=== PATIENT | female | born 1995 | race Caucasian/White ===

== ENCOUNTER 2017-11-25 06:35 | Emergency (ER) | payer BC ==
--- NOTE | 2017-11-25 07:58 | EDPHY ---
H & P Time Seen by Provider: 11/25/17 07:26 HPI/ROS: CHIEF COMPLAINT: Abdominal pain HISTORY OF PRESENT ILLNESS: The patient is a 22-year-old female who presents emergency department with right lower quadrant/right flank abdominal pain. Pain started 2-3 days ago. It was intermittent. She has had nausea but no vomiting. No dysuria, hematuria or frequency. Patient has had a slightly decreased appetite. She has not noticed any fevers or chills. The patient denies any vaginal discharge. Her last menstrual period was 2 weeks ago. She has not had sex within the last month. She came off the control pill 2 months ago. REVIEW OF SYSTEMS: My complete review of systems is negative except as mentioned in the HPI. Past Medical/Surgical History: Denies Past surgical history: Denies Social history: Patient does not smoke. She drinks alcohol. Smoking Status: Never smoked Physical Exam: Vitals noted GENERAL: Well-appearing, in no acute distress, alert. HEENT: Eyes normal to inspection, normal pharynx, no signs of dehydration. NECK: No thyromegaly,supple. RESPIRATORY: Clear to auscultation bilaterally, no rales, rhonchi or wheezing. CVS: Regular rate and rhythm, no rubs, murmurs, or gallops. ABDOMEN: Soft, mild right lower quadrant tenderness to palpation with no rebound or guarding, nondistended, no organomegaly. BACK: Normal to inspection, no CVA tenderness. SKIN: Normal color, no rash, warm, dry. No pallor. EXTREMITIES: No pedal edema, no calf tenderness, no Homans sign or cords, no joint swelling. NEURO/PSYCH: Alert and oriented, normal mood and affect, normal motor sensory exam. Constitutional: Initial Vital Signs Temperature (C) 36.5 C 11/25/17 06:45 Heart Rate 56 L 11/25/17 06:45 Respiratory Rate 18 11/25/17 06:45 Blood Pressure 124/89 H 11/25/17 06:45 O2 Sat (%) 99 11/25/17 06:45 O2 Delivery Mode Room Air Allergies/Adverse Reactions: No Known Allergies Allergy (Unverified 03/20/15 19:30) Home Medications: Medication Instructions Recorded NK [No Known Home Meds] 11/25/17 Medical Decision Making - Diagnostics Imaging Results: Imaging Impressions Abdomen Ultrasound 11/25/17 07:55 Impression: Tubular structure in the right lower quadrant may represent the appendix but visualized portions measure within normal limits. Small amount of free fluid. Recommend physical and laboratory correlation. Pelvic/Renal Ultrasound 11/25/17 07:55 Impression: Trace fluid in the pelvis, possibly related to menstruation. ED Course/Re-evaluation: In the emergency department I discussed possible etiologies with the patient. I answered all her questions. IV was placed. Laboratory studies were obtained. Patient does not want any pain medication at this time. An ultrasound of her right lower quadrant to evaluate for appendicitis as well as a pelvic ultrasound were ordered. Patient's CBC was normal. Chemistry panel is unremarkable. Urine negative. negative. Ultrasound: Please refer the dictated report. Normal appearing ovaries. The radiologist feels that he sees a tube like structure in the right lower quadrant could represent a normal appearing appendix. I discussed the results with the patient. I answered all her questions. On recheck she stated she was feeling slightly better. She had mild right lower quadrant tenderness palpation with no rebound or guarding. I offered her diagnostic options including CT imaging and observation. At this time she would prefer to be discharged. She was given warnings prior to leaving. She will return with worsening symptoms. She understands limitations of workup thus far. Differential Diagnosis: My differential includes but is not limited to appendicitis, ovarian cyst, ovarian abscess, , ectopic , PID, STD, urinary tract infection , pyelonephritis, small-bowel obstruction, perforation, volvulus - Data Points Laboratory Results: Laboratory Results 11/25/17 08:00 11/25/17 08:00 11/25/17 11/25/17 11/25/17 08:00 08:00 08:00 WBC RBC Hgb Hct MCV MCH MCHC RDW Plt Count MPV Neut % (Auto) Lymph % (Auto) [place] % (Auto) Eos % (Auto) Baso % (Auto) Nucleat RBC Rel Count Absolute Neuts (auto) Absolute Lymphs (auto) Absolute Monos (auto) Absolute Eos (auto) Absolute Basos (auto) Absolute Nucleated RBC Immature Gran % Immature Gran # Sodium 141 mEq/L mEq/L (135-145) Potassium 3.8 mEq/L mEq/L (3.3-5.0) Chloride 106 mEq/L mEq/L (97-110) Carbon Dioxide 25 mEq/l mEq/l (22-31) Anion Gap 10 mEq/L mEq/L (8-16) BUN 7 mg/dL mg/dL (7-23) Creatinine 0.6 mg/dL mg/dL (0.6-1.0) Estimated GFR > 60 Glucose 106 mg/dL H mg/dL (70-100) Calcium 9.8 mg/dL mg/dL (8.5-10.4) Beta HCG, Qual NEGATIVE Urine Color PALE YELLOW Urine Appearance CLEAR Urine pH 7.0 (5.0-7.5) Ur Specific [place] < 1.001 L (1.002-1.030) Urine Protein NEGATIVE (NEGATIVE) Urine Ketones NEGATIVE (NEGATIVE) Urine Blood NEGATIVE (NEGATIVE) Urine Nitrate NEGATIVE (NEGATIVE) Urine Bilirubin NEGATIVE (NEGATIVE) Urine Urobilinogen NEGATIVE EU EU (0.2-1.0) Ur Leukocyte Esterase NEGATIVE (NEGATIVE) Urine RBC NONE SEEN /hpf /hpf (0-3) Urine WBC 1-3 /hpf /hpf (0-3) Ur Epithelial Cells TRACE /lpf /lpf (NONE-1+) Urine Bacteria 2+ /hpf H /hpf (NONE SEEN) Urine Glucose NEGATIVE (NEGATIVE) 11/25/17 08:00 WBC 5.47 10^3/uL 10^3/uL (3.80-9.50) RBC 4.49 10^6/uL 10^6/uL (4.18-5.33) Hgb 14.7 g/dL g/dL (12.6-16.3) Hct 41.7 % % (38.0-47.0) MCV 92.9 fL fL (81.5-99.8) MCH 32.7 pg pg (27.9-34.1) MCHC 35.3 g/dL g/dL (32.4-36.7) RDW 11.7 % % (11.5-15.2) Plt Count 236 10^3/uL 10^3/uL (150-400) MPV 9.2 fL fL (8.7-11.7) Neut % (Auto) 42.3 % % (39.3-74.2) Lymph % (Auto) 39.9 % % (15.0-45.0) [place] % (Auto) 15.2 % H % (4.5-13.0) Eos % (Auto) 1.5 % % (0.6-7.6) Baso % (Auto) 0.7 % % (0.3-1.7) Nucleat RBC Rel Count 0.0 % % (0.0-0.2) Absolute Neuts (auto) 2.32 10^3/uL 10^3/uL (1.70-6.50) Absolute Lymphs (auto) 2.18 10^3/uL 10^3/uL (1.00-3.00) Absolute Monos (auto) 0.83 10^3/uL H 10^3/uL (0.30-0.80) Absolute Eos (auto) 0.08 10^3/uL 10^3/uL (0.03-0.40) Absolute Basos (auto) 0.04 10^3/uL 10^3/uL (0.02-0.10) Absolute Nucleated RBC 0.00 10^3/uL 10^3/uL (0-0.01) Immature Gran % 0.4 % % (0.0-1.1) Immature Gran # 0.02 10^3/uL 10^3/uL (0.00-0.10) Sodium Potassium Chloride Carbon Dioxide Anion Gap BUN Creatinine Estimated GFR Glucose Calcium Beta HCG, Qual Urine Color Urine Appearance Urine pH Ur Specific [place] Urine Protein Urine Ketones Urine Blood Urine Nitrate Urine Bilirubin Urine Urobilinogen Ur Leukocyte Esterase Urine RBC Urine WBC Ur Epithelial Cells Urine Bacteria Urine Glucose Departure - Departure Disposition: Home, Routine, Self-Care Clinical Impression: Abdominal pain Qualifiers: Abdominal location: right lower quadrant Qualified Code(s): R10.31 - Right lower quadrant pain Condition: Good Instructions: Abdominal Pain (ED) Additional Instructions: Return with increasing pain, more localized pain, fever, vomiting or any other concerns. Referrals: [facility] [Other] - 1-2 days without fail
[2017-11-25 08:18] LABS: PLATELET COUNT 236 10^3/uL (150-400)
[2017-11-25 10:27] VITALS: BP 113/81
== END 2017-11-25 10:26 | disposition home or self-care (01) ==
DX: R10.31 Right lower quadrant pain (principal)